=== PATIENT | female | born 1955 | race Caucasian/White ===

== ENCOUNTER → 2019-03-27 | Outpatient (CLI) | payer MEDICARE | END | disposition home or self-care (01) | LOC: CFH 13:56 | PROVIDERS: ATTEND Nurse Practitioner | DX: J44.0 Chronic obstructive pulmonary disease with (acute) lower respiratory infection (principal); R91.1 Solitary pulmonary nodule; Z98.890 Other specified postprocedural states | CPT/HCPCS: 71250 ==

== ENCOUNTER → 2019-08-15 | Outpatient (CLI) | payer MEDICARE ==
[~2019-08-15] MED LIST: ARIP2TAB2 PO; ASPI-496 PO; ATOR20TA37 PO; CELE200C PO; CLONIDINE; DESV100T PO; DOCU250C9 PO; GABA300C10 PO; HYDR200T72 PO; LEVA15HF4 INH; LEVO50TA PO; LUBI24CA7 PO; MELA5TAB14 PO; MORPHINE; MULTIVITAMIN PO; OXYC10TA6 PO; PANT20TA2 PO; POTA10TA31 PO; REGADENOSON 0.4 MG/5 ML SYRINGE ONE; TOPI100T8 PO; VITAMIN D PO
== END | disposition home or self-care (01) ==
LOC: CFH 09:08
PROVIDERS: ATTEND Internal Medicine Cardiovascular Disease
DX: R07.9 Chest pain, unspecified (principal); R06.00 Dyspnea, unspecified; Z87.891 Personal history of nicotine dependence; Z88.2 Allergy status to sulfonamides; Z88.5 Allergy status to narcotic agent
CPT/HCPCS: 78452; 93017; A9502; J2785

== ENCOUNTER 2019-08-27 12:14 | Outpatient (CLI) | payer MEDICARE ==
[~2019-08-27 12:14] MED LIST changes: -REGADENOSON 0.4 MG/5 ML SYRINGE ONE
[2019-08-27 13:24] LABS: ALANINE AMINOTRANSFERASE 32 U/L (12-78); ANION GAP 7 mmol/L (5-15); CALCIUM 9.4 mg/dL (8.5-10.1); CHLORIDE 110 mmol/L (98-107); CREATININE 0.75 mg/dL (0.55-1.02)
[2019-08-27 13:27] LABS: ALKALINE PHOSPHATASE 101 U/L (45-117); BILIRUBIN,TOTAL 0.2 mg/dL (0.2-1.0); CHOL/HDL RATIO 5.9; CHOLESTEROL, TOTAL 296 mg/dL (140-239); HDL CHOL % 17 % (28-40); HDL CHOLESTEROL (DIRECT) 50 mg/dL (40-60); TOTAL PROTEIN 7.7 g/dL (6.4-8.2); TRIGLYCERIDES 408 mg/dL (50-200)
== END 2019-08-27 23:59 | disposition home or self-care (01) ==
LOC: RAD 12:14
PROVIDERS: ATTEND Internal Medicine Cardiovascular Disease
DX: M47.816 Spondylosis without myelopathy or radiculopathy, lumbar region (principal); M51.16 Intervertebral disc disorders with radiculopathy, lumbar region; E03.9 Hypothyroidism, unspecified; M48.061 Spinal stenosis, lumbar region without neurogenic claudication; R06.00 Dyspnea, unspecified; R07.9 Chest pain, unspecified
CPT/HCPCS: 36415; 72120; 80053; 80061

== ENCOUNTER 2019-08-30 16:45 | Emergency (ER) | payer MEDICARE ==
[~2019-08-30] VITALS: Ht 165.1 cm; Wt 94.2 kg
[2019-08-30] MEDS ORDERED: ASPIRIN 81 MG TABLET CHEW PO ONE (17:00)
--- NOTE | 2019-08-30 17:03 | NUR ---
PT ARRIVED AT ROOM AT THIS TIME.
[2019-08-30] MEDS ORDERED: ASPIRIN 81 MG TABLET CHEW ONE (17:05)
--- NOTE | 2019-08-30 17:11 | NUR ---
PT C/O LEFT SIDE CHEST PAIN WHICH BEGAN AT 1400 TODAY. PT WAS SITTING WORKING ON A PUZZLE WHEN IT BEGAN. CONNECTED TO MONITORING. CALL LIGHT IN REACH.
--- NOTE | 2019-08-30 17:18 | NUR ---
XRAY DONE. LAB AT BEDSIDE.
[2019-08-30 17:41] LABS: BASOPHILS # (AUTO) 0.03 x10^3/uL (0-0.1); BASOPHILS % (AUTO) 1 % (0-1); EOSINOPHILS # (AUTO) 0.21 x10^3/uL (0-0.4); EOSINOPHILS % (AUTO) 4 % (1-7); LYMPHOCYTES # (AUTO) 1.71 x10^3/uL (1-3.4); LYMPHOCYTES % (AUTO) 32 % (22-44); MD NO; MEAN CORPUSCULAR HEMOGLOBIN 30.2 pg (27.0-34.8); MEAN CORPUSCULAR VOLUME 91.7 fL (80-100); MEAN PLATELET VOLUME 7.6 fL (7.4-10.4); MONOCYTES % (AUTO) 7 % (2-9); NEUTROPHILS # (AUTO) 3.08 x10^3/uL (1.8-6.8); NEUTROPHILS % (AUTO) 57 % (42-75); PLATELET COUNT 234 x10^3/uL (130-400); RED BLOOD COUNT 5.01 x10^6/uL (3.82-5.3); RED CELL DISTRIBUTION WIDTH 13.6 % (9.6-15.2)
[2019-08-30 17:52] LABS: ALBUMIN 3.7 g/dL (3.4-5.0); ANION GAP 6 mmol/L (5-15); CALCIUM 9.3 mg/dL (8.5-10.1); CHLORIDE 110 mmol/L (98-107); CREATININE 0.79 mg/dL (0.55-1.02)
[2019-08-30 17:55] LABS: TROPONIN I < 0.015 ng/mL (0.000-0.045)
--- NOTE | 2019-08-30 17:57 | NUR ---
ALL RESULTS ARE BACK AT THIS TIME. CHART UP FOR RECHECK.
--- NOTE | 2019-08-30 18:03 | NUR ---
PT RESTING ON [employer] PLAYING ON HER PHONE. NADN. AT BEDSIDE.
--- NOTE | 2019-08-30 18:46 | NUR ---
MD WAITING ON CARDIOLOGY CONSULT AT THIS TIME.
[2019-08-30] MEDS ORDERED: MAALOX/HYOSCYAMINE/LIDOCAINE 45 ML BTL ONE (19:16)
[2019-08-30 19:23] VITALS: BP 123/50
--- NOTE | 2019-08-30 19:24 | NUR ---
[facility] ADMIN PER NOV. PT RESTING ON [employer] WATCHING TV.
[2019-08-30] MEDS ORDERED: MAALOX/HYOSCYAMINE/LIDOCAINE 45 ML BTL PO ONE (19:30)
--- NOTE | 2019-08-30 19:40 | NUR ---
MD AT BEDSIDE TO UPDATE PT ON POC.
== END 2019-08-30 19:59 | disposition home or self-care (01) ==
LOC: ED 18:46
DX: R07.89 Other chest pain (principal); R06.02 Shortness of breath; E11.9 Type 2 diabetes mellitus without complications; E78.5 Hyperlipidemia, unspecified; E03.9 Hypothyroidism, unspecified; Z90.89 Acquired absence of other organs
CPT/HCPCS: 36415; 71045; 80048; 82040; 84484; 85025; 93005; 99284

== ENCOUNTER 2019-09-14 08:27 | Day surgery (SDC) | payer MEDICARE ==
[~2019-09-14] VITALS: Ht 165.1 cm; Wt 98.0 kg
[2019-09-14] MEDS ORDERED: ASPIRIN 325 MG TABLET EC PO ONE (09:00)
[2019-09-14] MEDS ORDERED: MULT-658 PO (09:10)
[2019-09-14] MEDS ORDERED: TRAZ-137 PO (09:10)
[2019-09-14 09:26] VITALS: BP 150/78
[2019-09-14] MEDS ORDERED: ASPIRIN 325 MG TABLET EC ONE (09:33)
[2019-09-14 09:51] LABS: BASOPHILS # (AUTO) 0.03 x10^3/uL (0-0.1); BASOPHILS % (AUTO) 1 % (0-1); EOSINOPHILS # (AUTO) 0.15 x10^3/uL (0-0.4); EOSINOPHILS % (AUTO) 3 % (1-7); LYMPHOCYTES # (AUTO) 1.43 x10^3/uL (1-3.4); LYMPHOCYTES % (AUTO) 25 % (22-44); MD NO; MEAN CORPUSCULAR HEMOGLOBIN 30.2 pg (27.0-34.8); MEAN CORPUSCULAR HGB CONC 33.7 g/dL (32.4-35.8); MEAN CORPUSCULAR VOLUME 89.7 fL (80-100); MEAN PLATELET VOLUME 7.3 fL (7.4-10.4); MONOCYTES # (AUTO) 0.45 x10^3/uL (0.2-0.8); MONOCYTES % (AUTO) 8 % (2-9); NEUTROPHILS # (AUTO) 3.66 x10^3/uL (1.8-6.8); NEUTROPHILS % (AUTO) 64 % (42-75); PLATELET COUNT 187 x10^3/uL (130-400); RED BLOOD COUNT 4.99 x10^6/uL (3.82-5.3); RED CELL DISTRIBUTION WIDTH 13.6 % (9.6-15.2)
[2019-09-14 10:03] LABS: ANION GAP 5 mmol/L (5-15); CALCIUM 9.3 mg/dL (8.5-10.1); CHLORIDE 112 mmol/L (98-107); CREATININE 0.78 mg/dL (0.55-1.02)
[2019-09-14] MEDS ORDERED: SODIUM CHLORIDE 0.9% 1,000 ML IV SCH (11:00)
[2019-09-14] MEDS ORDERED: VERAPAMIL 2.5 MG/ML, 2ML ONE (11:56)
[2019-09-14] MEDS ORDERED: FENTANYL PF 100 MCG/2ML ONE (11:56)
[2019-09-14] MEDS ORDERED: MIDAZOLAM 1 MG/ML, 5ML ONE (11:56)
[2019-09-14] MEDS ORDERED: LIDOCAINE 2%, 20ML ONE (11:57)
[2019-09-14] MEDS ORDERED: HEPARIN 1,000 UNITS/ML, 10ML ONE (11:57)
[2019-09-14] MEDS ORDERED: BIVALIRUDIN 250 MG ONE (11:57)
== END 2019-09-14 14:15 | disposition home or self-care (01) ==
LOC: CACL 08:27
PROVIDERS: ATTEND Internal Medicine Cardiovascular Disease
DX: R07.89 Other chest pain (principal); I20.8 Other forms of angina pectoris; E03.9 Hypothyroidism, unspecified; E11.42 Type 2 diabetes mellitus with diabetic polyneuropathy; E78.2 Mixed hyperlipidemia; Z88.1 Allergy status to other antibiotic agents; Z88.8 Allergy status to other drugs, medicaments and biological substances; Z87.891 Personal history of nicotine dependence; Z79.84 Long term (current) use of oral hypoglycemic drugs
CPT/HCPCS: 36415; 71046; 80048; 85025; 93458; 99156; C1769; C1894; J1644; J2250; J3010; Q9967; J0583

== ENCOUNTER → 2020-03-19 | Outpatient (CLI) | payer MEDICARE ==
[~2020-03-19] MED LIST changes: +MULT-658 PO; +TRAZ-175 PO
== END | disposition home or self-care (01) ==
LOC: RAD 11:34
PROVIDERS: ATTEND Internal Medicine
DX: M47.816 Spondylosis without myelopathy or radiculopathy, lumbar region (principal); M48.07 Spinal stenosis, lumbosacral region; J44.9 Chronic obstructive pulmonary disease, unspecified; Z98.890 Other specified postprocedural states
CPT/HCPCS: 71250; 72114; 72148

== ENCOUNTER → 2020-04-04 | Outpatient (CLI) | payer MEDICARE ==
[~2020-04-04] MED LIST changes: +OMNIPAQUE 350 MG/ML, 100ML BOTTLE ONE
[2020-04-04 11:44] LABS: CREATININE 0.71 mg/dL (0.55-1.02)
== END | disposition home or self-care (01) ==
LOC: RAD 11:14
PROVIDERS: ATTEND Internal Medicine
DX: K86.2 Cyst of pancreas (principal); R91.8 Other nonspecific abnormal finding of lung field
CPT/HCPCS: 36415; 74170; 82565; Q9967

== ENCOUNTER → 2020-04-16 | Outpatient (CLI) | payer MEDICARE ==
[~2020-04-16] MED LIST changes: -OMNIPAQUE 350 MG/ML, 100ML BOTTLE ONE
== END | disposition home or self-care (01) ==
LOC: RAD 10:32
PROVIDERS: ATTEND Neurological Surgery
DX: M89.9 Disorder of bone, unspecified (principal)
CPT/HCPCS: 78306; A9503

== ENCOUNTER → 2020-06-30 | Outpatient (CLI) | payer MEDICARE ==
[~2020-06-30] MED LIST changes: +ATOR40TA PO
[2020-06-30 12:46] LABS: BASOPHILS % (AUTO) 1 % (0-1); EOSINOPHILS % (AUTO) 3 % (1-7); LYMPHOCYTES % (AUTO) 30 % (22-44); MEAN CORPUSCULAR HGB CONC 33.2 g/dL (32.4-35.8); MEAN PLATELET VOLUME 7.6 fL (7.4-10.4); MONOCYTES % (AUTO) 8 % (2-9); NEUTROPHILS % (AUTO) 59 % (42-75); PLATELET COUNT 204 x10^3/uL (130-400); RED BLOOD COUNT 4.99 x10^6/uL (3.82-5.3); RED CELL DISTRIBUTION WIDTH 13.3 % (9.6-15.2)
[2020-06-30 12:50] LABS: ANION GAP 5 mmol/L (5-15); CALCIUM 9.6 mg/dL (8.5-10.1); CHLORIDE 110 mmol/L (98-107); CREATININE 0.71 mg/dL (0.55-1.02)
[2020-06-30 12:53] LABS: MICROSCOPIC AUTO
[2020-06-30 12:58] LABS: MD NO
[2020-06-30 13:04] LABS: INTERNATIONAL NORMALIZED RATIO 0.99 (0.93-1.1); PROTHROMBIN TIME 10.2 Seconds (9.6-11.5)
== END | disposition home or self-care (01) ==
LOC: STAR 10:51
PROVIDERS: ATTEND Neurological Surgery
DX: Z01.818 Encounter for other preprocedural examination (principal); M43.16 Spondylolisthesis, lumbar region; R94.31 Abnormal electrocardiogram [ECG] [EKG]
CPT/HCPCS: 36415; 80048; 81001; 85025; 85610; 85730; 87086; 93005

== ENCOUNTER → 2020-07-07 | Outpatient (CLI) | payer MEDICARE | END | disposition home or self-care (01) | LOC: STAR 14:14 | PROVIDERS: ATTEND Anesthesiology | DX: Z01.812 Encounter for preprocedural laboratory examination (principal); Z20.828 Contact with and (suspected) exposure to other viral communicable diseases | CPT/HCPCS: 36415; 87635 ==

== ENCOUNTER 2020-10-18 15:34 | Emergency (ER) | payer MEDICARE ==
[~2020-10-18] VITALS: Ht 165.1 cm; Wt 93.7 kg
[~2020-10-18 15:34] MED LIST changes: +OXYC5TAB98 PO
--- NOTE | 2020-10-18 16:00 | NUR ---
pt states blood in urine with small clots, vss, no consistant pain, states pain has gone down since she passed clots
--- NOTE | 2020-10-18 16:10 | NUR ---
TASK RN: UOB WITHOUT ASSISTANCE TO BATHROOM, STEADY GAIT.
--- NOTE | 2020-10-18 16:20 | NUR ---
TASK RN: URINE SAMPLE COLLECTED. AFTER LAB DRAW PT TO XRAY VIA [employer].
[2020-10-18 16:30] LABS: BASOPHILS % (AUTO) 1 % (0-1); EOSINOPHILS % (AUTO) 1 % (1-7); LYMPHOCYTES % (AUTO) 12 % (22-44); MEAN CORPUSCULAR HGB CONC 32.2 g/dL (32.4-35.8); MEAN PLATELET VOLUME 7.4 fL (7.4-10.4); MONOCYTES % (AUTO) 11 % (2-9); NEUTROPHILS % (AUTO) 76 % (42-75); PLATELET COUNT 231 x10^3/uL (130-400); RED BLOOD COUNT 5.22 x10^6/uL (3.82-5.3); RED CELL DISTRIBUTION WIDTH 18.1 % (9.6-15.2)
[2020-10-18 16:36] LABS: ALANINE AMINOTRANSFERASE 26 U/L (12-78); ALBUMIN 3.7 g/dL (3.4-5.0); ANION GAP 7 mmol/L (5-15); CALCIUM 9.5 mg/dL (8.5-10.1); CHLORIDE 110 mmol/L (98-107); CREATININE 1.25 mg/dL (0.55-1.02)
[2020-10-18 16:38] LABS: ALKALINE PHOSPHATASE 128 U/L (45-117); BILIRUBIN,TOTAL 0.2 mg/dL (0.2-1.0); MD NO; TOTAL PROTEIN 7.7 g/dL (6.4-8.2)
[2020-10-18 16:39] LABS: MICROSCOPIC INDICATED
--- NOTE | 2020-10-18 16:52 | NUR ---
pt in bed no distress, vss,
--- NOTE | 2020-10-18 18:09 | NUR ---
PT TO CT
--- NOTE | 2020-10-18 18:14 | NUR ---
pt back for ct no distress
[2020-10-18 20:08] VITALS: BP 136/72
== END 2020-10-18 20:23 | disposition home or self-care (01) ==
LOC: ED 19:46
DX: N13.2 Hydronephrosis with renal and ureteral calculous obstruction (principal); E11.9 Type 2 diabetes mellitus without complications; E03.9 Hypothyroidism, unspecified; G89.29 Other chronic pain; E78.5 Hyperlipidemia, unspecified; M19.90 Unspecified osteoarthritis, unspecified site; Z90.89 Acquired absence of other organs; Z87.891 Personal history of nicotine dependence; Z88.2 Allergy status to sulfonamides
CPT/HCPCS: 36415; 74021; 74176; 80053; 81001; 83690; 85025; 99285

== ENCOUNTER 2020-10-19 17:48 | Emergency (ER) | payer MEDICARE ==
[~2020-10-19] VITALS: Ht 165.1 cm; Wt 92.0 kg
--- NOTE | 2020-10-19 18:01 | NUR ---
PROVIDER AT BEDSIDE FOR ASSESSMENT AND TO DISCUSS PLAN OF CARE.
[2020-10-19] MEDS ORDERED: OXYcodone/APAP 5/325MG TABLET ONE (18:17)
--- NOTE | 2020-10-19 18:21 | NUR ---
LAB AT BEDSIDE
[2020-10-19] MEDS ORDERED: OXYcodone/APAP 10/325MG TABLET PO ONE (18:30)
[2020-10-19] MEDS ORDERED: ASPIRIN 81 MG TABLET CHEW PO ONE (18:30)
[2020-10-19 18:47] LABS: BASOPHILS % (AUTO) 0 % (0-1); EOSINOPHILS % (AUTO) 1 % (1-7); LYMPHOCYTES % (AUTO) 9 % (22-44); MEAN CORPUSCULAR HEMOGLOBIN 24.8 pg (27.0-34.8); MEAN CORPUSCULAR HGB CONC 31.7 g/dL (32.4-35.8); MEAN PLATELET VOLUME 7.6 fL (7.4-10.4); MONOCYTES % (AUTO) 9 % (2-9); NEUTROPHILS % (AUTO) 81 % (42-75); PLATELET COUNT 186 x10^3/uL (130-400); RED BLOOD COUNT 4.76 x10^6/uL (3.82-5.3); RED CELL DISTRIBUTION WIDTH 17.9 % (9.6-15.2)
[2020-10-19 18:49] LABS: MD NO
[2020-10-19 18:56] LABS: ALBUMIN 3.3 g/dL (3.4-5.0); ANION GAP 2 mmol/L (5-15); CALCIUM 9.9 mg/dL (8.5-10.1); CHLORIDE 111 mmol/L (98-107)
[2020-10-19 19:01] LABS: ALANINE AMINOTRANSFERASE 23 U/L (12-78); ALKALINE PHOSPHATASE 107 U/L (45-117); BILIRUBIN,TOTAL 0.5 mg/dL (0.2-1.0); CREATININE 1.28 mg/dL (0.55-1.02); TOTAL PROTEIN 7.3 g/dL (6.4-8.2); TROPONIN I < 0.015 ng/mL (0.000-0.045)
--- NOTE | 2020-10-19 19:39 | NUR ---
PT RESTING ON GURNEY. ORDERED MEDICATION ADMINISTERED. VSS. NAD. CALL LIGHT W/IN REACH. WILL CONTINUE TO MONITOR
--- NOTE | 2020-10-19 19:40 | NUR ---
PT UP TO COMMODE TO URINATE X2 ASSIST. ORDERED MEDICATIONS ADMINISTERED. VSS.
[2020-10-19 20:33] LABS: MICROSCOPIC AUTO
--- NOTE | 2020-10-19 20:39 | NUR ---
PT RESTING ON [place]. UPDATED ON PLAN OF CARE. VSS. NAD. CALL LIGHT W/IN REACH.
[2020-10-19 20:40] VITALS: BP 154/76
[2020-10-19 20:40] LABS: TROPONIN I < 0.015 ng/mL (0.000-0.045)
--- NOTE | 2020-10-19 21:20 | NUR ---
324MG ASPIRIN ADMINISTERED BY EMS ENROUTE TO [facility]. PROVIDER AWARE. ORDERED ASPIRIN NONADM DUE TO DUPLICATE DOSE. OKAY PER PROVIDER
--- NOTE | 2020-10-19 21:41 | NUR ---
PT TRANSPORTED TO DISCHARGE VIA WHEELCHAIR. PT ENCOURAGED TO FOLLOWUP DISCUSSED. PT EDUCATED TO RETURN TO THE ED WITH WORSENING SYMPTOMS.
== END 2020-10-19 21:43 | disposition home or self-care (01) ==
LOC: ED 18:15
DX: N13.2 Hydronephrosis with renal and ureteral calculous obstruction (principal); R31.9 Hematuria, unspecified; R07.89 Other chest pain; R94.31 Abnormal electrocardiogram [ECG] [EKG]; E11.9 Type 2 diabetes mellitus without complications; E03.9 Hypothyroidism, unspecified; I11.0 Hypertensive heart disease with heart failure; I50.9 Heart failure, unspecified; M19.90 Unspecified osteoarthritis, unspecified site; Z87.891 Personal history of nicotine dependence; Z90.89 Acquired absence of other organs
CPT/HCPCS: 36415; 80053; 81001; 83690; 84484; 85025; 93005; 99284